=== PATIENT | male | born 1990 | race Caucasian/White ===

== ENCOUNTER 2020-10-03 11:31 | Emergency (ER) | payer SELFPAY ==
[~2020-10-03] VITALS: Ht 177.8 cm; Wt 68.2 kg
[2020-10-03 11:44] VITALS: BP 131/81; Ht 177.8 cm; Wt 68.2 kg
== END 2020-10-03 12:33 | disposition left against medical advice (07) ==
LOC: D.ER 11:31
DX: Z76.5 Malingerer [conscious simulation] (principal); Z53.29 Procedure and treatment not carried out because of patient's decision for other reasons; R10.2 Pelvic and perineal pain